=== PATIENT | female | born 1965 | race Caucasian/White ===

== ENCOUNTER 2016-11-04 14:15 | Emergency (ER) | payer OTHER ==
[2016-11-04] MEDS ORDERED: MORPHINE SULFATE 4 MG/1 ML IVP ONE (14:34)
[2016-11-04] MEDS: NORMAL SALINE 10 ML SYRINGE FLUSH IVP PRN ×2 (14:35→14:38)
--- NOTE | 2016-11-04 14:40 | PDOC ---
Abdomen/Flank HPI - General Chief Complaint: Abdomen Pain Stated Complaint: L LOWER ABD/ GROIN PAIN Date Seen by Provider: 11/04/16 Time Seen by Provider: 14:35 - History of Present Illness Initial Comments: Patient is a very nice 51-year-old woman who presents to the emergency department with severe left lower quadrant pain. She states the pain is in the mid abdomen region and radiates down into the groin. Maybe a little bit up into the left flank as well. She denies any recent urinary symptoms. She's had no fever or chills. She denies any history of known diverticulitis or other pelvic issues or problems. She has had cholecystectomy in the past but still has her appendix. She denies any other abdominal surgeries or acute or chronic abdominal issues. 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 - Patient Home Medications Home Medications: Home Medications Cefdinir Cap [Omnicef Cap] 300 mg PO BID #14 capsule 11/04/16 Phenazopyridine HCl [Pyridium] 200 mg PO TID PRN #10 tablet 11/04/16 - Patient Allergies Allergies/Adverse Reactions: Allergies Allergy/AdvReac Type Severity Reaction Status Date / Time erythromycin base Allergy Severe Anaphylaxis Verified 11/04/16 14:51 [Erythromycin Base] latex [Latex] Allergy Intermediate RASH Verified 11/04/16 14:51 duloxetine HCl AdvReac Intermediate NAUSEA Verified 11/04/16 14:51 [From Cymbalta] Past Medical History - heen HEENT History: Denies History Cardiovascular History: Denies History Respiratory History: Denies History Gastrointestinal History: Other (please comment) (cholecystectomy) Genitourinary History: Denies History Endocrine History: Denies History Neurological History: Denies History Significant Family History: Cancer, Diabetes, Heart disease, Hypertension, Renal disease, Seizures, Vascular disease Past Medical History Reviewed: Reviewed - No Changes ROS - Limitations ROS Limitations: No Limitations Constitution: REPORTS: Denies Symptoms Cardiovascular: REPORTS: Denies Cardiac Symptoms Respiratory: REPORTS: Denies Resp Symptoms Genitourinary: REPORTS: Denies Symptoms Abdominal/Flank Pain PE - General Appearance General Appearance: POSITIVE: Alert, Cooperative, No Acute Distress - HEENT HEENT: POSITIVE: Head Inspection Nml, Eyes Inspection Nml, Ears Inspection Nml - Neck Neck: POSITIVE: Normal Inspection, No Apparent Injury - Respiratory Respiratory: POSITIVE: No Respiratory Distress, Breath Sounds Normal - Cardiovascular Cardiovascular: POSITIVE: Regular Rate and Rhythm, Heart Sounds Normal - Chest Chest: POSITIVE: Non Tender - Abdomen Additional Abdominal Details: Substantial left lower quadrant tenderness and pain. Some rebound to palpation and definite guarding. Bowel tones present - Back Back: POSITIVE: CVA Tenderness (L) - Skin Skin: POSITIVE: Intact - Neurological Neurological: POSITIVE: Affect Apporpriate, Oriented X3 - Psychological Psychiatric: POSITIVE: Affect Appropriate, Mood Appropriate Abdomen Progress - Results Reviewed by me Xrays/CTs/US Reviewed by me: Yes Radiology Findings: CT scan of the abdomen has signs consistent with urinary tract infection with probable mild pyelonephritis bilaterally. Also some signs of her inflammatory bowel disease and maybe even mild pancreatitis. Lab Results Reviewed: Yes Lab Results:: Laboratory Results 11/04/16 11/04/16 Range/Units 14:33 15:35 WBC 9.55 (4.8-10.8) 10^3/uL RBC 4.35 (4.20-5.40) 10^6/uL Hgb 13.7 (12.0-16.0) g/dL Hct 41.5 (37.0-47.0) % MCV 95.4 (81-99) FL MCH 31.5 H (27-31) PG MCHC 33.0 (33-37) g/dL RDW Std Deviation 43.9 (39-50) fL RDW Coeff of Emilie 13.1 (11.5-14.5) % Plt Count 300 (140-350) 10*3/uL MPV 12.0 (7.4-12.2) FL Immature Gran % (Auto) 0 (0-5) % Neut % (Auto) 61.4 (50-80) % Lymph % (Auto) 29.6 (10-50) % [place] % (Auto) 7.0 (5-15) % Eos % (Auto) 1.4 (0-8) % Baso % (Auto) 0.6 (0-1) % Immature Gran # (Auto) 0 10*3/UL Neut # (Auto) 5.86 10*3/UL Lymph # (Auto) 2.83 10*3/uL [place] # (Auto) 0.67 (0.3-0.8) 10*3/UL Eos # (Auto) 0.13 10*3/UL Baso # (Auto) 0.06 10*3/UL WBC Morphology Comment Normal morphology (NORM) Plt Morphology Comment Normal morphology (NORM) RBC Morph Comment Normal morphology (NORM) ESR 16 (0-20) MM/HR Sodium 142 (135-145) meq/L Potassium 4.3 (3.8-5.2) meq/L Chloride 105 (98-112) meq/L Carbon Dioxide 26 (23-33) meq/L Anion Gap 11 (5-20) BUN 9 (7-22) mg/dL Creatinine 0.6 (0.50-1.20) mg/dL Estimated GFR > 60 (>60 ml/min/1.73m(2)) BUN/Creatinine Ratio 15.00 (6-20) Glucose 86 (78-110) mg/dL Calculated Osmolality 291.0 (267-292) mOsm/kg Calcium 9.5 (8.7-10.7) mg/dL Total Bilirubin 0.7 (0.3-1.2) mg/dL AST 27 (8-39) IU/L ALT 36 (9-52) IU/L Alkaline Phosphatase 103 (38-126) IU/L C-Reactive Protein 2.1 H (0.0-0.9) mg/dL Total Protein 7.8 (6.1-8.0) g/dL Albumin 4.6 (3.5-4.8) g/dL Globulin 3.2 (2.50-4.10) g/dL Albumin/Globulin Ratio 1.40 (1.3-2.0) mg/g Serum HCG, Qual Negative Ur Collection Type Clean catch urine Urine Color Yellow Urine Clarity Clear (CLEAR) Urine pH 5.5 (5.0-8.5) Ur Specific [place] 1.010 (1.005-1.030) Urine Protein Negative (NEG) mg/dl Urine Glucose (UA) Negative (NEG) mg/dL Urine Ketones Negative (NEG) Urine Occult Blood Trace-lysed H (NEG) Urine Nitrate Negative (NEG) Urine Bilirubin Negative (NEG) Urine Urobilinogen 0.2 (0.2) EU/dL Ur Leukocyte Esterase Large (NEG) Urine RBC 0-3 (NONE) /hpf Urine WBC 40-50 (NONE) Ur Squamous Epith Cells None (NONE) Ur Renal Epithelial Cell None (NONE) Urine Crystals None Urine Bacteria Moderate (NONE) Urine Casts None (NONE) Urine Mucus None (NONE) Urine Trichomonas None (NONE) Urine Yeast None (NONE) Ur Culture Indicated? Culture set - Patient's Progress MDM / ED Course: This patient CT scan had a lot of abnormalities. Ultimately I don't feel that she likely has any clinical evidence of pancreatitis and is having no issues with eating or epigastric pain at all so I told her to be on guard for increasing epigastric abdominal pain but that I believe she can eat what she wants. She has 7 bowel inflammation but does have history of inflammatory bowel disease. I think the biggest finding here is the inflammation around her bladder and urinary system. I went ahead and gave her Rocephin IV and then started her on third-generation cephalosporin orally. She is to follow-up with her primary care provider very near future and she needs to monitored closely until she has resolution. She may need a repeat CT scan of her abdomen afterwords to make sure things of cleared in the way of inflammation. Patient Care Time - Estimated PCT Patient Care Time (In Minutes): 35 Vital Signs - VS Reviewed Vital Signs Reviewed: Yes Discharge Clinical Impression: Abdominal pain UTI (urinary tract infection) Qualifiers: Urinary tract infection type: acute cystitis Hematuria presence: without hematuria Qualifier Code: (N30.00) Acute cystitis without hematuria Discharge Disposition: Discharged to Home Condition: Good Prescriptions / Orders: Cefdinir Cap [Omnicef Cap] 300 mg PO BID #14 capsule Phenazopyridine HCl [Pyridium] 200 mg PO TID PRN #10 tablet PRN Reason: Urinary Discomfort Patient Instructions Given at Discharge: Urinary Tract Infection in Women (ED) , Acute Abdominal Pain (ED) Additional Instructions: Follow-up with your primary care provider as soon as possible to go over urine culture results. Drink cranberry juice as tolerated Push plenty of fluids to clear your urinary tract Return with any substantial worsening of symptoms or if you do not have any improvement in the first 24-48 hours. Follow Up With: NONE,NONE [Primary Care Provider] -
[2016-11-04] MEDS ORDERED: ONDANSETRON 4 MG/2 ML VIAL IVP ONE (15:26)
[2016-11-04 15:27] LABS: BILIRUBIN,URINE NEGATIVE (NEG); CLARITY,URINE CLEAR (CLEAR); GLUCOSE, URINE (UA) NEGATIVE (NEG); LEUKOCYTE ESTERASE ,URINE LARGE (NEG); NITRATE,URINE NEGATIVE (NEG); OCCULT BLOOD,URINE Trace-lysed (NEG); PH,URINE 5.5 (5.0-8.5); PROTEIN,URINE NEGATIVE (NEG); UROBILINOGEN,URINE 0.2 EU/dL (0.2)
[2016-11-04 15:31] LABS: URINE SAMPLE TYPE CLEAN CATCH URINE
[2016-11-04 15:32] LABS: BACTERIA,URINE MODERATE; RBC,URINE 0-3 /hpf; WBC,URINE 40-50
[2016-11-04 15:48] LABS: BASOPHILS # (AUTO) 0.06 10*3/UL; BASOPHILS % (AUTO) 0.6 % (0-1); EOSINOPHILS % (AUTO) 1.4 % (0-8); HEMATOCRIT 41.5 % (37.0-47.0); HEMOGLOBIN 13.7 g/dL (12.0-16.0); IMM GRAN % (AUTO) 0 % (0-5); IMM GRAN# (AUTO) 0 10*3/UL; LYMPHOCYTES # (AUTO) 2.83 10*3/uL; LYMPHOCYTES % (AUTO) 29.6 % (10-50); MEAN CORPUSCULAR HEMOGLOBIN 31.5 PG (27-31); MONOCYTES # (AUTO) 0.67 10*3/UL (0.3-0.8); NEUTROPHILS # (AUTO) 5.86 10*3/UL; NEUTROPHILS % (AUTO) 61.4 % (50-80); RDW COEFFICIENT OF VARIATION 13.1 % (11.5-14.5); RED BLOOD COUNT 4.35 10^6/uL (4.20-5.40); WHITE BLOOD COUNT 9.55 10^3/uL (4.8-10.8)
[2016-11-04 15:50] LABS: PLATELET MORPHOLOGY COMMENT NORMAL MORPHOLOGY (NORM)
[2016-11-04 15:53] LABS: ASPARTATE AMINO TRANSFERASE 27 IU/L (8-39); BILIRUBIN,TOTAL 0.7 mg/dL (0.3-1.2); BLOOD UREA NITROGEN 9 mg/dL (7-22); C-REACTIVE PROTEIN 2.1 mg/dL (0.0-0.9); CALCIUM 9.5 mg/dL (8.7-10.7); CHLORIDE 105 meq/L (98-112); CREATININE 0.6 mg/dL (0.50-1.20); EST GLOMERULAR FILTRATION > 60 (>60 ml/min/1.73m(2)); GLUCOSE 86 mg/dL (78-110); POTASSIUM 4.3 meq/L (3.8-5.2); SODIUM 142 meq/L (135-145); TOTAL PROTEIN 7.8 g/dL (6.1-8.0)
[2016-11-04 16:09] VITALS: RESP 16; TEMP 97.4
[2016-11-04] MEDS ORDERED: Pantoprazole Inj 40 MG in Normal Saline Flush 10 ML IVP ONE (16:37)
[2016-11-04 16:39] LABS: ERYTHROCYTE SEDIMENTATION RATE 16 MM/HR (0-20)
[2016-11-04] MEDS ORDERED: cefTRIAXone Inj 1 GM in Sodium Chloride 0.9% 100 ML IV ONE (16:39)
[2016-11-04] MEDS ORDERED: Phenazopyridine Tab 200 MG TAB PO ONE (16:42)
[2016-11-04] MEDS ORDERED: KETOROLAC 15 MG/1 ML VIAL IVP ONE (16:43)
[2016-11-04] MEDS ORDERED: Sodium Chloride 0.9% 1,000 ML PRIMARY IV ONE (16:43)
--- NOTE | 2016-11-04 18:38 | DI ---
HISTORY: Left lower abdominal pain with flank pain. COMPARISON: None available. TECHNIQUE: Contiguous axial enhanced images of the abdomen and pelvis were obtained from the lung ba ses through the ischial tuberosities. The images were then submitted for interpretation. FINDINGS: The heart size is normal, and the lung bases are clear. The liver and spleen are normal in size and contour and demonstrate no focal abnormalities. There ar e no calcified gallstones identified. There are minimal inflammatory changes in the pancreas. The k idneys are in anatomic position. There is no evidence of renal calculi, hydronephrosis, or solid marifer al masses. No urolithiasis. There is mild stranding in the ureter, bilaterally; more on the left. Mild stranding in the bladder wall which can be seen in systemic inflammatory response or a passed st one or cystitis. The visualized vascular structures are normal. Inflammatory changes are seen in the gastric mucosa, small bowel and colon are seen. Irritable bowel disease or celiac sprue can give this appearance. Diverticulosis in the sigmoid. No diverticuliti s. IMPRESSION: 1. No urolithiasis. No hydronephrosis. 2. There is mild stranding in the ureter, bilaterally; more on the left. Mild stranding in the bladd er wall which can be seen in systemic inflammatory response or a passed stone or cystitis. Please co rrelate with history. 3. There are minimal inflammatory changes in the pancreas. Please correlate with history to exclude pancreatitis. 4. Inflammatory changes are seen in the gastric mucosa, small bowel and colon are seen. Irritable jared wel disease or celiac sprue can give this appearance. Please correlate with history. 5. Diverticulosis in the sigmoid. No diverticulitis. NOTIFICATION: The above findings were phoned to Cassandra Robert in the ER Department on 11/04/2016 at 08:52 PM EST.
== END 2016-11-04 19:16 | disposition home or self-care (01) ==
LOC: ER 14:15
DX: N30.00 Acute cystitis without hematuria (principal); R11.0 Nausea; R10.32 Left lower quadrant pain
CPT/HCPCS: 74178; 80053; 81001; 81003; 84703; 85025; 85652; 86140; 87088; 96361; 96365; 96375; 99283; J0696; J1885; J2270; J2405; J3490; J7030; J7050